=== PATIENT | female | born 1945 | race Caucasian/White ===

== ENCOUNTER → 2017-02-28 | Outpatient (CLI) | payer OTHER ==
[~2017-02-28] MED LIST: IRBE1TAB50 PO; ONDA8TAB6 PO; PROC1TAB5 PO
--- NOTE | 2017-02-28 14:56 | DIAGNOSTIC IMAGING REPORT ---
LYMPHOSCINTIGRAPHY CLINICAL HISTORY: Right breast cancer. PROCEDURE: Using standard sterile technique, 4 intradermal and one deep injection of 0.54 mCi of Lymphoseek was placed in the right breast. The patient tolerated the procedure well. There were no immediate complications. The patient was subsequently transported to the surgical suite. No imaging was obtained at the referring physician's request. IMPRESSION: Injection of 0.54 mCi of Lymphoseek in the right breast. Electronically signed by: Yoel Medrano M.D. 02/28/2017 2:55 PM Dictated Date/Time: 02/28/2017 2:54 PM
== END | disposition home or self-care (01) ==
LOC: C.NUCL 13:20
PROVIDERS: ATTEND Surgery
DX: C50.911 Malignant neoplasm of unspecified site of right female breast (principal)

== ENCOUNTER → 2017-07-22 | Outpatient (CLI) | payer OTHER ==
[~2017-07-22] MED LIST changes: +AMLO-110 PO; +BIOT1TAB5
--- NOTE | 2017-07-22 12:23 | DIAGNOSTIC IMAGING REPORT ---
VENOUS DOPP LOWER EXT UNILAT CLINICAL HISTORY: LT LEG SWELLING,R/O DVT pain. Edema. TECHNIQUE: Venous Doppler COMPARISON STUDY: None FINDINGS: Normal study IMPRESSION: Normal venous Doppler left leg The above report was generated using voice recognition software. It may contain grammatical, syntax or spelling errors. Electronically signed by: Felix Wilson M.D. 07/22/2017 12:22 PM Dictated Date/Time: 07/22/2017 12:11 PM
== END | disposition home or self-care (01) ==
LOC: C.ULTR 11:33
PROVIDERS: ATTEND Physician Assistant Medical
DX: R60.0 Localized edema (principal)

== ENCOUNTER → 2017-10-09 | Outpatient (CLI) | payer OTHER ==
[2017-10-09 14:18] VITALS: BP 145/77; PULSE 92; TEMP 36.8; O2SAT 96
--- NOTE | 2017-10-09 16:11 | Radiation Oncology Follow-Up ---
Radiation Oncology Follow-Up Date of Visit Oct 09, 2017. Reason For Visit One-month follow-up and cancer survivorship care plan Radiation Completion Date 09/04/17 Diagnosis (1) Breast cancer of upper-outer quadrant of right female breast Status: Acute Onset Date: 02/07/2017 Histology Subtype: Invasive carcinoma Permanent Comment: Abnormal right breast mammogram Status post ultrasound-guided core needle biopsies 02/07/2017 Invasive carcinoma grade 2 Estrogen receptor negative, progesterone receptor negative, HER-2/manuel positive Status post right partial mastectomy and sentinel lymph node biopsy Stage pT2 pN0 M0 Status post completion of systemic chemotherapy with paclitaxel and Herceptin, will continue Herceptin for 1 year Status post completion of radiation therapy September 04, 2017. She received 6280 cGy Last Edited By: Gillian Melendez on Sep 11, 2017 17:08 History of Present Illness Ms. Hanna is a 71-year-old female who was undergoing annual screening mammograms at [facility] on 02/07/2017. This was compared to a prior mammogram dated 01/18/2014. This revealed an area of architectural distortion contiguous with a 2.2 cm dense spiculated mass at the 9 o'clock position anterior depth. There were a large number of coarse associated branching linear calcifications and a few benign scattered calcifications elsewhere which were stable. The left breast was unremarkable. Patient went on to have a right breast ultrasound on 02/07/2017. This revealed an abnormality that corresponds to the mammographic findings at the 9:30 position 2 cm from the nipple. This revealed an irregular shadowing hypoechoic mass with indistinct margins measuring 1.5 x 0.8 x 1.0 cm. Ultrasound-guided core needle biopsy was recommended and was scheduled for later that day. The biopsy procedure was performed without difficulty with placement of a biopsy marker adjacent to the mass. This revealed a grade 2 invasive carcinoma with no lymphovascular invasion. Estrogen and progesterone receptors were negative and HER-2/manuel was positive by IHC and confirmed positive by FISH analysis. Ki-67 was 35% (high). 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 Case: [id number]. Patient was seen by Dr. Andrade Olguin. He discussed treatment options with the patient. The patient agreed to proceed with breast conserving therapy. This mass was not palpable and his examination revealed fullness in the upper outer quadrant just off the edge of the areola but no definitive mass. Patient therefore proceeded with a right breast partial mastectomy and sentinel node biopsy. This confirmed an invasive carcinoma of no special type with a Cj grade 2. The lesion measured 2.5 x 2.0 x 2.0 cm. The examined margins of the invasive carcinoma were negative. The invasive carcinoma did extend to within 1.4 cm of the superior and deep margins. DCIS was also identified solid with necrosis and nuclear grade 3 of 3. The margins on DCIS were also negative but extended to within 0.8 cm of the inferior margin. 3 sentinel lymph nodes were identified and all lymph nodes were negative with no evidence of metastatic disease. No lymphovascular invasion was identified. The final AJCC pathologic staging was therefore pT2 pN0(sn), ER negative, TN negative and HER-2/manuel positive. Case: [id number]. Patient was seen in consultation by Dr. Emory Nunez. He reviewed the pathologic findings including the size of 2.5 cm and negative ER TN status positive HER-2/manuel status. He recommended, following the NCCN Guidelines, adjuvant systemic chemotherapy. He recommended consideration of weekly Paclitaxel and weekly Herceptin for 12 cycles followed by Herceptin maintenance every 3 weeks for an additional 9 months. The patient agreed and she is started on her systemic therapy. She has received 2 cycles and is tolerating treatment extremely well. She completed her systemic chemotherapy and return to our office. She completed radiation therapy September 04, 2017. She received 6280 cGy. Interim History She has been doing well over the past month. The skin irritation is steadily improved. There continues to be a mild dark discoloration. She is noted no masses or tenderness and no change of the axilla. She has had no swelling of her arm. She continues regular follow-up with medical oncology. She is continued on Herceptin. She is for recheck echocardiogram in the next week. She has set up an appointment to see the Dr. Connell on October 21. She has not been set up for mammography and wished for office to go forward with setting these up. She follows with mammography in [place]. Allergies Uncoded Allergies: seasonal (Allergy, Mild, congestion, 04/17/17) Review of Systems Gastrointestinal: Symptoms: WNL Oral: Symptoms: No Problems Respiratory: Symptoms: WNL, SOB With Exertion Urinary: Symptoms: WNL Skin: Symptoms: No Problems Breast: Right Upper Arm Measurement: 28.3 Right Mid Arm Measurement: 22.7 Right Wrist Measurement: 15.5 Left Upper Arm Measurement: 28.4 Left Mid Arm Measurement: 23.5 Left Wrist Measurement: 15.1 Arm Dominence: Right Physical Exam Vital Signs Date Time Temp Pulse Resp B/P (MAP) Pulse Ox O2 Delivery O2 Flow Rate FiO2 10/09/17 14:18 36.8 92 16 145/77 96 Fatigue: None General Appearance: no apparent distress Eyes: normal inspection, EOMI ENT: normal ENT inspection, hearing grossly normal Neck: no adenopathy, thyroid normal Respiratory/Chest: lungs clear, no respiratory distress, no accessory muscle use Breast: Breast examination reveals resolving hyperpigmentation of the right breast. There are no masses or tenderness and no axillary adenopathy. She has no skin retractions or nipple changes. Using the Independence score of cosmesis she has a good outcome. The left breast showed no masses or tenderness and no axillary adenopathy. Cardiovascular: regular rate, rhythm, no gallop, no murmur Abdomen: non tender Extremities: no pedal edema Neurologic/Psychiatric: no motor/sensory deficits, alert, normal mood/affect Skin: warm/dry Lymphatic: no adenopathy Pain Management Patient Reports Pain: No Pain Management Plan She denied pain therefore requires no pain management. Laboratory Laboratory Results: not applicable Pathology Pathology Results: were reviewed, and pertinent findings noted in HPI Imaging Imaging Studies: were reviewed, and pertinent findings noted in HPI Assessment & Plan Plan: Continue regular follow-up with her primary care physician, medical oncology, and breast surgeon. She was reassured that the hyperpigmentation is going to steadily fade over time. Mammography was scheduled for the right breast in 2 months and bilateral breasts in 8 months. These will be scheduled in [place]. We asked her to return to our office in 6 months. Today we completed cancer survivorship care plan. A copy of the document was given to the patient. She was given a survivorship booklet. She may call our office if she has any questions or concerns in the interim. Total Time In Follow-Up I spent 20 minutes speaking to the patient in performing examination. I spent 20 minutes reviewing information, preparing the survivorship document, and completing this note. Copy To Vannesa Connell DO; Bryce Bennett M.D.; Emory Nunez M.D. Problem Qualifiers (1) Breast cancer of upper-outer quadrant of right female breast: Estrogen receptor status: negative Qualified Codes: C50.411 - Malignant neoplasm of upper-outer quadrant of right female breast; Z17.1 - Estrogen receptor negative status [ER-]
== END | disposition home or self-care (01) ==
LOC: C.ONC 14:09
PROVIDERS: ATTEND Physician Assistant Medical
DX: Z08 Encounter for follow-up examination after completed treatment for malignant neoplasm (principal); Z92.3 Personal history of irradiation; Z85.3 Personal history of malignant neoplasm of breast